=== PATIENT | male | born 1955 | race Caucasian/White ===

== ENCOUNTER 2022-02-07 10:29 | Outpatient (CLI) | payer MEDICARE, BC, SELFPAY ==
--- NOTE | 2022-02-07 10:30 | ECG_ITS ---
Measurements Intervals [place] Rate: 49 P: 37 [place]: 196 QRS: -23 QRSD: 123 T: 47 QT: 433 QTc: 395 Interpretive Statements SINUS BRADYCARDIA INTRAVENTRICULAR CONDUCTION DELAY BASELINE ARTIFACT- I, II, III, AVR, AVL, AVF, V1-V2, V4-V6 ABNORMAL ECG NO PREVIOUS ECG AVAILABLE FOR COMPARISON Electronically Signed On 02-07-2022 11:19:40 CDT by Anjum Field D.O.
[2022-02-07 12:27] LABS: Appearance Urine Clear (Clear); Bilirubin Urine Negative (Negative); Blood Urine Negative (Negative); Color Urine Yellow (Yellow); Glucose Urine UA Negative (Negative); Ketones Urine Negative (Negative); Leukocyte Esterase Ur Negative LEU/UL (Negative); Nitrate Urine Negative (Negative); Protein Urine Negative (Negative); Specific Grav Ur 1.015 (1.001-1.035); Urobilinogen Urine 0.2 mg/dL (<2.0)
[2022-02-07 13:10] LABS: Add Urine Microscopic? NO
== END 2022-02-07 10:30 | disposition home or self-care (01) ==
LOC: ANHSURGERY 10:44
PROVIDERS: Visit Provider Urology
DX: N21.0 Calculus in bladder (principal); R00.1 Bradycardia, unspecified; R94.31 Abnormal electrocardiogram [ECG] [EKG]; I10 Essential (primary) hypertension
CPT/HCPCS: 81003; 93005

== ENCOUNTER 2022-02-08 01:00 | Day surgery (SDC) | payer MEDICARE, BC, SELFPAY ==
[2022-02-04 13:43] VITALS: BMI 25.2
--- NOTE | 2022-02-04 14:13 | PC.NURSE ---
Report to the Outpatient Waiting Room, entrance under the green pavilion located off [facility], at time _11:45AM on date __02/08/22 . OR Time: __1:45PM . Time changes happen often and if your time is changed the preop area will call you the afternoon before. - You and your visitor will be asked to self-screen and do not enter if you have any COVID symptoms. - Only one visitor and NO children visitors are allowed at this time. - The patient visitor is requested to leave or wait in car when not with patient due to restrictions. - A mask is required within the hospital. Patients may have clear liquids (water, carbonated beverages, clear teas, apple juice) until 3 hours prior to surgery with a maximum of 20 ounces. - No food from midnight until time of surgery Take the following medications with a SIP of water the morning of surgery: ___NONE Medications to discontinue per physician ____HOLD ALL VITAMINS/SUPPLEMENTS STARTING NOW PER DR WALL____LAST DOSE STARTING TODAY 02/04/22__ Please no make-up, nail romanian, hairspray, perfume, deodorant, or body powder the day of surgery. No jewelry (including any body piercings) or valuables the day of surgery, leave them at home. Please take a shower or bath the night before, or the morning of, surgery with an antibacterial soap. Wear comfortable, loose fitting clothing. Children are encouraged to wear pajamas. - Jewelry must be removed prior to entering the operating room. Rings and piercings that are not removed may be cut off. - The hospital will not accept responsibility for valuables. - Please leave all valuables, including medications, at home the day of surgery. If you are going home after surgery, a licensed truck driver's offsider must drive you home. - NO public transportation without another adult. - We recommend that an adult stay with you for 24 hours following discharge. - We also recommend that you do not drive, make important decision, drink alcoholic beverages, or take any drugs that were not prescribed by your health care provider for at least 24 hours after your discharge time. Follow any additional instructions given to you from your surgeon. If you or anyone in your household have experienced Covid symptoms in the past week, please notify your surgeon or the nurse liaison at the phone number below for possible testing. Telephone instructions given to __PATIENT and asked if any additional questions and then verbalized understanding. Patient advised to call surgeon office or pre surgery nurse liaison [phone] if any additional questions.
--- NOTE | 2022-02-08 10:53 | WPDANESEPPF ---
Anes - Initial Pre Proc Eval Procedure: Operation Date: 02/08/22 13:45 Proposed Procedures p Cystoscopy, Holmium Laser of Bladder Stones - Radhames Hackett MD Date/Time: 02/08/22 10:53 Surgeon: Radhames Hackett MD Pre Op Diagnosis: Gross Hematuria, Bladder Stones Patient Data Age: 66 Gender: M Height: 1.78 m Weight: 80 kg Allergies Allergy/AdvReac Type Severity Reaction Status Date / Time No Known Allergies Allergy Verified 02/08/22 12:19 Home Medications Medication Instructions Recorded Confirmed Type celecoxib 200 mg capsule 200 mg PO BID 02/04/22 02/08/22 History glucosamine 500 mg-msm 100 mg-vit 3 cap PO DAILY 02/04/22 02/08/22 History C 20 ug-reppe-rhnc-primrose capsule (Joint Support Complex) tamsulosin 0.4 mg capsule 0.4 mg PO DAILY 02/04/22 02/08/22 History Patient hx anesthesia problems: none Family hx anesthesia problems: none Results Review: All pre-operative results and documents have been reviewed as part of the pre-operative evaluation. [facility] Past Medical History Medical History (Updated 02/08/22 @ 10:54 by Ted Perez MD) BPH (benign prostatic hyperplasia) HTN (hypertension) Hyperlipidemia Osteoarthritis Social History Social History Smoking status: Never smoker Alcohol intake: never Substance use: never Living arrangements: with family Additional living arrangements comments: Spiritual care concerns: No Anes - Eval Final PreProcedure Day of Procedure 02/08/22 10:53 Patient weight: normal Heart: regular rate and rhythm Lungs: clear to auscultation and normal air movement Airway: Mallampati scale class II Neurological: alert and oriented Last oral intake: >/= 8 hours ASA classification: II Emergent: no Anesthetic plan: proceed Anesthesia type and monitoring: general LMA Results Review: All pre-operative results and documents have been reviewed as part of the pre-operative evaluation. Informed Consent: The patient's anesthetic plan and its attendant risks and benefits were discussed with the patient/family/POA. Questions were solicited and answers provided to the satisfaction of the patient/family/POA.
--- NOTE | 2022-02-08 11:49 | WPDHPUPDATE1 ---
History and Physical Update Update Date/Time: 02/08/22 11:49 History and Physical has been reviewed, including an updated exam of the patient. There are NO changes in the patient's condition. Risks, benefits, and alternatives have been discussed and questions answered. Patient agrees to proceed with procedure. Proceed with cysto with holmium laser bladder stone
[2022-02-08 12:07] VITALS: BP 140/76; PULSE 56; RESP 16; TEMP 36.8; O2SAT 100
[2022-02-08] MEDS: LACTATED RINGERS 1,000 ML 30 ML IV CONT (13:00)
[2022-02-08] MEDS: ceFAZolin 2 GM/D5W 50 ML 2 GM/50 ML BAG IVPB (13:07)
[2022-02-08] MEDS: LIDOCAINE HCL 2% GEL UROJET 10 ML PKG MUCOUS MEM (13:20)
--- NOTE | 2022-02-08 13:38 | P.OP_ITS ---
Procedure Note - Detailed Date of Procedure 02/08/22 Pre-op Diagnosis Gross Hematuria, Bladder Stones Post-op Diagnosis Same Procedure Performed Cysto with holmium laser bladder stone 1.5 cm, fulguration of prostate Surgeon Radhames Hackett MD Anesthesia General Description of Procedure Patient is taken to the operative suite correctly identified. Once anesthesia was obtained was placed in dorsal lithotomy position and prepped and draped usual sterile fashion. Twenty-two Armenian scope was inserted in the bladder direct vision. There was no tumors noted. He does have a slight median lobe and the stone which was lodged posterior to it. Using a 1000 micron holmium laser fiber we fragmented the stone multiple small pieces and retrieved large 1 the sent for analysis. Reinspection revealed no further stones in the bladder. There were no tumors noted. He did have some oozing from the median lobe area. We used a Bugbee electrode to fulgurate this area. There appeared to be good hemostasis at termination procedure. 2% viscous lidocaine was inserted into the urethra patient is taken recovery stable condition. Will have patient follow-up in 3-4 weeks time. Estimated Blood Loss 0 Drains No Packing No Pathology Yes Complications No immediate complications Condition Stable Disposition PACU
[2022-02-08 13:48] VITALS: BP 92/57; PULSE 73; RESP 12; TEMP 36.6; O2SAT 96
[2022-02-08 14:05] VITALS: BP 132/94; PULSE 61; RESP 18; O2SAT 99
[2022-02-08 14:20] VITALS: BP 140/84; PULSE 57; RESP 14; O2SAT 99
[2022-02-08 14:30] VITALS: BP 142/97; PULSE 55; RESP 16
[2022-02-08 15:00] VITALS: BP 160/98; PULSE 52; RESP 16
== END 2022-02-08 15:30 | disposition home or self-care (01) ==
PROVIDERS: PCP Pediatrics; Visit Provider Urology
PROC: 0TCB8ZZ Extirpation of Matter from Bladder, Via Natural or Artificial Opening Endoscopic (ICD-10-PCS; CPT 52352; principal; 2022-02-08 13:45)
DX: N21.0 Calculus in bladder (principal); R31.0 Gross hematuria; I10 Essential (primary) hypertension; E78.5 Hyperlipidemia, unspecified; N40.0 Benign prostatic hyperplasia without lower urinary tract symptoms; M19.90 Unspecified osteoarthritis, unspecified site
CPT/HCPCS: 52317; 52214; 82365; 88300; J0690; J2250; J2405; J2704; J3010; J7120